=== PATIENT | male | born 1955 | race Caucasian/White ===

== ENCOUNTER 2024-08-27 06:04 | Day surgery (SDC) | payer OTHER ==
[2024-08-21 12:08] LABS: PTT, Activated Partial Thromb 35.2 SECONDS (27.2-37.4); Protime INR 0.96
[2024-08-21 12:17] LABS: Anion Gap 8.5 mEq/L (5.0-15.0); Potassium 4.5 mEq/L (3.5-5.1)
[2024-08-21 12:18] LABS: Absolute Eosinophils 0.1 K/uL (0-0.5); Absolute Lymphocytes (CBC) 1.3 K/uL (0.7-4.9); Absolute Monocytes 0.5 K/uL (0.1-1.3); Absolute Neutrophil 3.9 K/uL (1.8-8.0); Basophils % 0.4 % (0-1.3); Hematocrit 41.9 % (39.6-49.0); Hemoglobin 14.6 g/dL (13.6-17.9); Lymphocytes % 22.8 % (15.3-44.8); MCH 31.1 pg (27.0-35.0); MPV 8.1 fL (7.6-11.3); Neutrophils % 66.8 % (41.7-73.7); Platelets 115 thou/uL (152-406); Red Cell Distribution Width 13.4 % (12.1-15.2)
--- NOTE | 2024-08-21 13:09 | RAD REPORT ---
EXAMINATION: TWO VIEW CHEST XR CLINICAL INDICATION: pre op for day surgery TECHNIQUE: 2 views of the chest was performed. COMPARISON: No prior exam. FINDINGS: The lungs are well inflated and clear. The heart is normal in size. No displaced fractures evident. S ternotomy wires present. Multidetector pacer/defibrillator device. IMPRESSION: No acute or significant abnormalities.
--- NOTE | 2024-08-26 12:37 | EKG ---
Test Date: 2024-08-21 Test Time: 11:50:04 [employer]nament[employer] E[employer] Apprentice: VERONICA MEASUREMENT RESULTS: Intervals: Rate: 65 SC: 208 QRSD: 94 QT: 400 QTc: 416 [place]: P: 50 SC: 208 QRS: 21 T: 99 INTERPRETIVE STATEMENTS: Electronic atrial pacemaker Septal infarct, age undetermined T wave abnormality, consider lateral ischemia Abnormal ECG No previous ECG available for comparison Electronically Signed On 08-26-24 12:27:30 CDT by Rashid Graham
[2024-08-27] MEDS ORDERED: LIDOCAINE 1% MPF 5 ML VIAL ONE (06:17)
[2024-08-27] MEDS ORDERED: BUPIVACAINE 0.5% PF 10 ML VIAL ONE (06:18)
[2024-08-27] MEDS ORDERED: MIDAZOLAM HCL 2 MG/2 ML INJ ONE ×2 (06:18→08:04)
[2024-08-27] MEDS ORDERED: EPINEPHRINE 1 MG/ML VIAL ONE (06:19)
[2024-08-27] MEDS ORDERED: FENTANYL CITR 100 MCG/2 ML ONE ×2 (06:19→08:04)
[2024-08-27] MEDS ORDERED: dexAMETHasone 10 MG/ML VIAL ONE ×2 (06:19→08:04)
[2024-08-27] MEDS: Ringers Lactate 1,000 ML IV ONE (06:30)
[2024-08-27] MEDS ORDERED: KETOROLAC 30 MG/ML INJ ONE (08:04)
[2024-08-27] MEDS ORDERED: propofoL 200 MG/20 ML VIAL IV ONE (08:04)
[2024-08-27] MEDS ORDERED: ROCURONIUM 50 MG/5 ML VIAL IV ONE (08:04)
[2024-08-27] MEDS ORDERED: ONDANSETRON 4 MG/2 ML VIAL ONE (08:04)
[2024-08-27] MEDS ORDERED: LIDOCAINE 2% MPF 5 ML VIAL ONE (08:04)
[2024-08-27] MEDS: CEFAZOLIN SODIUM 2 GM/VIAL ONE (08:51)
[2024-08-27] MEDS: EPINEPHRINE 1 MG/ML VIAL ONE (08:54)
--- NOTE | 2024-08-27 10:00 | P.BOP ---
Preoperative diagnosis: Right rotator cuff tear, right biceps tenosynovitis Postoperative diagnosis: Same Primary procedure: Right shoulder arthroscopic rotator cuff debridement Secondary procedure: Right shoulder open subpectoral biceps tenodesis Odd Ticket Clerk: NONE,NONE Estimated blood loss: 5 cc Specimen: None Findings: See dictation Anesthesia: General Complications: None Implants: 1- 7 x 19 mm [employer] Bio-Tenodesis screw Fluids & blood products: Per anesthesia record Transferred to: Recovery Room Condition: Good
--- NOTE | 2024-08-27 10:47 | P.OP ---
Preoperative diagnosis: Right shoulder rotator cuff tear, right shoulder biceps tenosynovitis Postoperative diagnosis: Same, right shoulder SLAP tear Primary procedure: Right shoulder arthroscopic rotator cuff debridement Secondary procedure: Right shoulder open subpectoral biceps tenodesis Anesthesia: General Estimated blood loss: 5 cc Specimen: None Findings: See dictation Operative Technique: Indication For Procedure: Solis is a 68-year-old male who presented to my clinic with signs, symptoms, and MRI findings consistent with a right shoulder massive retracted full-thickness rotator cuff tear. I discussed with the patient risks and benefits associated with operative and nonoperative treatment including possibility of the tear being irreparable. He expressed understanding and elected to proceed with operative treatment. Description Of Procedure: After informed consent was obtained, the patient was identified in the preoperative holding area. The right upper extremity was marked. The patient then was brought to the PACU where he underwent a right- sided interscalene block performed by Anesthesia. The patient was brought back to the operating room, transferred to the operative table in supine fashion, placed under general endotracheal anesthesia. He was then placed in a beach chair position with his extremities well padded. The right upper extremity was then prepped and draped in usual sterile fashion. A time-out was initiated. The correct patient and procedure were performed and identified. The patient did receive preoperative prophylactic antibiotics. Via the posterior portal position, a spinal needle was introduced in the glenohumeral joint and the shoulder was injected with 30 cc of normal saline to distend the capsule. A stab incision was made posteriorly and a posterior portal was created. Arthroscope was brought in via the posterior portal position and diagnostic arthroscopy was performed. Under direct visualization, an anterior portal and cannula were created. The patient was noted to have a type II SLAP tear, which was debrided using the arthroscopic shaver. There were no significant instability of the superior labrum or anterior posterior labrum, which were stable to probe. There was fraying and tenosynovitis of the bicipital tendon both intra-articular and extra-articular. A biceps tenotomy was performed using a meniscal biter. The anchor was then debrided using the arthroscopic shaver. Subscapularis was found to be stable and intact to probe. There were no loose bodies within the axillary pouch. The patient was noted to have a full- thickness tear of the supraspinatus and infraspinatus to the level of the glenoid. A lateral portal was created and an arthroscopic shaver was then used to debride the greater tuberosity. The undersurface and superior aspect of the rotator cuff tear was also debrided using the arthroscopic shaver to remove any unhealthy tissue. Using a grasper, it was noted that the tear could not be mobilized lateral to the glenoid rim. At that point, it was decided to proceed with rotator cuff debridement as the tear was irreparable. Next attention was taken to perform the biceps tenodesis. A 5 cm longitudinal incision was made just medial to the pec insertion. Dissection was then taken down to the fascia. This fascia was split in line with the incision. The pec tendon was then gently retracted superiorly. The long head of the biceps tendon was identified and brought out through the incision. A ruler was then used to measure 3 cm distal to the myotendinous junction. The tendon proximal to the ania was whipstitched using a fiber loop. The remaining tendon was excised. A guidepin was then placed within the bicipital groove followed by an 8 mm reamer. A tunnel was created using the reamer. A 7 x 19 mm Bio-Tenodesis screw was then used to fix the biceps tendon within the tunnel with overall good purchase. Sutures were tied over the screw and remaining sutures were cut. Wound was then irrigated thoroughly with normal saline. Subcutaneous tissue was approximated using a 2-0 Vicryl. Portals were approximated using a 3-0 Monocryl. Sterile dressings were applied. Shoulder immobilizer was placed. The patient was awakened and transferred to PACU in stable condition. Postoperative Plan: The patient will be nonweightbearing in a shoulder immobilizer for 4 weeks. We will follow the biceps tenodesis protocol 3 weeks postoperatively. Complications: None Implants: 1-7 x 19 mm Ar[employer]rex Bio-Tenodesis screw Fluids & blood products: Per anesthesia record Transferred to: Recovery Room Condition: Good
--- NOTE | 2024-08-27 11:00 | RAD REPORT ---
EXAM:Shoulder 1 View HISTORY: RC DEBRIDEMENT, BICEPS TENDONOSIS RIGHT COMPARISON: None FINDINGS/IMPRESSION: Mild AC joint degenerative changes are present. Humeral head mildly high riding. No fracture or dislocation. No worrisome bone lesions.
[2024-08-27 12:35] VITALS: BP 106/67; TEMP 97; O2SAT 96
== END 2024-08-27 11:45 | disposition home or self-care (01) ==
LOC: OR 06:04
PROVIDERS: ATTEND Orthopaedic Surgery Sports Medicine
PROC: 0LS30ZZ Reposition Right Upper Arm Tendon, Open Approach (ICD-10-PCS; 2024-08-27)
PROC: 0RHJ04Z Insertion of Internal Fixation Device into Right Shoulder Joint, Open Approach (ICD-10-PCS; 2024-08-27)
PROC: 0RBJ4ZZ Excision of Right Shoulder Joint, Percutaneous Endoscopic Approach (ICD-10-PCS; principal; 2024-08-27 08:00)
DX: S46.011A Strain of muscle(s) and tendon(s) of the rotator cuff of right shoulder, initial encounter (principal); S43.431A Superior glenoid labrum lesion of right shoulder, initial encounter; M75.21 Bicipital tendinitis, right shoulder
CPT/HCPCS: 93005; 85025; 80048; 36415; 85610; 85730; 71046; 73020; 29822; 23430; J2704; J2003 ×2; J2250; J3010; J1100 ×2; J0171 ×2; J2405; J7120